=== PATIENT | male | born 1975 | race Two or more races ===

== ENCOUNTER 2023-07-17 02:00 | Emergency (ER) | payer OTHER ==
[~2023-07-17] VITALS: Ht 177.8 cm; Wt 77.1 kg
[2023-07-17] MEDS ORDERED: METHADONE HCL40 MG PO (02:04)
[2023-07-17] MEDS ORDERED: METHYLPREDNISOLONE SOD SUCC 125 MG VIAL IV ONE (03:00)
[2023-07-17] MEDS ORDERED: ALLEGRA ALLERG180 MG PO (03:15)
== END 2023-07-17 03:21 | disposition home or self-care (01) ==
LOC: ER 02:00
DX: S10.86XA Insect bite of other specified part of neck, initial encounter (principal); W57.XXXA Bitten or stung by nonvenomous insect and other nonvenomous arthropods, initial encounter; Y93.89 Activity, other specified; Y92.89 Other specified places as the place of occurrence of the external cause